=== PATIENT | male | born 1995 | race Caucasian/White ===

== ENCOUNTER 2019-07-06 09:37 | Outpatient (CLI) | payer BC, SELFPAY ==
--- NOTE | ~2019-07-06 | XR_ITS ---
EXAMINATION: XR chest 2V DATE: 07/06/2019 10:32 INDICATION: Midsternal chest pain TECHNIQUE: Frontal and lateral views of the chest are obtained COMPARISON: None available FINDINGS: The lungs are free of acute opacities. There is no pleural effusion or pneumothorax. The ca rdiomediastinal silhouette is normal. The visualized bones and soft tissues are unremarkable. IMPRESSION: 1. No acute cardiopulmonary abnormality. Reviewed, dictated and finalized at location B.
--- NOTE | 2019-07-06 09:42 | EST_ITS ---
Patient Info Name: Med Harrell Age: 23 years : 1995 Gender: Male Ht: 70 in Wt: 205 lbs BSA: 2.17 m2 Exam Date: 07/06/2019 9:56 AM Exam Location: [facility] Stress Patient Status: Outpatient Admit Date: 07/06/2019 Staff Ordering Physician: Victoria Vila NP Attending Provider: Victoria Vila NP Exercise Technologist: Chen Castro RDCS Exercise Physician: Ramses Joe DO Exam Type: CA stress test treadmill Study Info Indications R07.89 - Other chest pain A treadmill exercise stress test was performed. Summary 1. 1. Negative Toro exercise stress test for ischemic ST changes by ECG criteria. 2. 2. Good functional capacity, achieving 14 METs of workload. 3. 3. Baseline hypertension. 4. 4. Appropriate HR response to exercise. 5. 5. Appropriate HR recovery at 1 minute post exercise. 6. 6. No imaging with stress testing. 7. 7. Patient informed of the above results. Protocol: [facility]o Stress ECG Details Stage: REST Duration (min): 0 min : 43 sec Speed (mph): 0.0 Grade (%): 0 HR (bpm): 83 SBP (mmHg): 155 DBP (mmHg): 91 METS: --- Stage: REST Duration (min): 4 min : 53 sec Speed (mph): 0.0 Grade (%): 0 HR (bpm): 74 SBP (mmHg): 155 DBP (mmHg): 91 METS: --- Stage: STAGE 1 Duration (min): 1 min : 0 sec Speed (mph): 1.7 Grade (%): 10 HR (bpm): 91 SBP (mmHg): 155 DBP (mmHg): 91 METS: --- Stage: STAGE 1 Duration (min): 2 min : 0 sec Speed (mph): 1.7 Grade (%): 10 HR (bpm): 94 SBP (mmHg): 155 DBP (mmHg): 91 METS: --- Stage: STAGE 1 Duration (min): 3 min : 0 sec Speed (mph): 1.7 Grade (%): 10 HR (bpm): 93 SBP (mmHg): 175 DBP (mmHg): 75 METS: --- Stage: STAGE 2 Duration (min): 1 min : 0 sec Speed (mph): 2.5 Grade (%): 12 HR (bpm): 107 SBP (mmHg): 175 DBP (mmHg): 75 METS: --- Stage: STAGE 2 Duration (min): 2 min : 0 sec Speed (mph): 2.5 Grade (%): 12 HR (bpm): 106 SBP (mmHg): 188 DBP (mmHg): 75 METS: --- Stage: STAGE 2 Duration (min): 3 min : 0 sec Speed (mph): 2.5 Grade (%): 12 HR (bpm): 107 SBP (mmHg): 188 DBP (mmHg): 75 METS: --- Stage: STAGE 3 Duration (min): 1 min : 0 sec Speed (mph): 3.4 Grade (%): 14 HR (bpm): 118 SBP (mmHg): 170 DBP (mmHg): 72 METS: --- Stage: STAGE 3 Duration (min): 2 min : 0 sec Speed (mph): 3.4 Grade (%): 14 HR (bpm): 124 SBP (mmHg): 170 DBP (mmHg): 72 METS: --- Stage: STAGE 3 Duration (min): 3 min : 0 sec Speed (mph): 3.4 Grade (%): 14 HR (bpm): 126 SBP (mmHg): 176 DBP (mmHg): 76 METS: --- Stage: STAGE 4 Duration (min): 1 min : 0 sec Speed (mph): 4.2 Grade (%): 16 HR (bpm): 150 SBP (mmHg): 176 DBP (mmHg): 76 METS: --- Stage: STAGE 4 Duration (min): 2 min :
== END 2019-07-06 09:38 | disposition home or self-care (01) ==
PROVIDERS: PCP Internal Medicine; Visit Provider Nurse Practitioner
DX: R07.9 Chest pain, unspecified (principal); D75.1 Secondary polycythemia
CPT/HCPCS: 71046; 93017

== ENCOUNTER 2019-10-19 11:01 | Outpatient (CLI) | payer BC, SELFPAY ==
--- NOTE | 2019-10-24 15:38 | WPDHOLTEREM ---
Holter/Event Monitor Holter/Event Monitor Date of procedure: 10/19/19 Procedure Type: 48 hour holter monitor Indications: Palpitations Conclusion: 1. 48 hour holter monitor on 10/19/19. 2. Underlying rhythm is sinus rhythm. HR range 43-171 bpm; average HR 78 bpm. 3. There are 2 premature supraventricular complexes. No supraventricular tachycardia. 4. No premature ventricular complexes. No ventricular tachycardia. 5. No sinoatrial or atrioventricular blocks. No significant pauses greater than 2 seconds. 6. Patient reports symptoms of skipped beats, fluttering, sharp pain which demonstrate Sinus rhythm, HR range 58-138 bpm and a PAC.
== END 2019-10-19 11:02 | disposition home or self-care (01) ==
LOC: ANHCARD 11:03
PROVIDERS: PCP Internal Medicine; Visit Provider Clinical Nurse Specialist
DX: R00.2 Palpitations (principal)
CPT/HCPCS: 93225; 93226

== ENCOUNTER 2023-09-02 17:31 | Emergency (ER) | payer BC, SELFPAY ==
[2023-09-02 17:38] VITALS: BP 149/86; PULSE 66; RESP 18; TEMP 36.4; O2SAT 100
--- NOTE | 2023-09-02 17:38 | ED.SKABFB ---
HPI - Skin/Abscess/Foreign Bdy General Chief complaint: Skin/Abscess/Foreign Body Stated complaint: Wound on Tailbone Time Seen by Provider: 09/02/23 17:39 Source: patient Mode of arrival: ambulatory Limitations: no limitations History of Present Illness HPI narrative: Patient is a 27-year-old male who presents with 3 months of wound on tailbone. States it started after falling while skiing on to having a knot. Patient has seen Dermatology and states it was almost gone. The last 3 days he has noticed it grow in size, tenderness and irritation. Denies any drainage from area. Related Data Allergies Allergy/AdvReac Type Severity Reaction Status Date / Time No Known Allergies Allergy Unverified 08/31/23 07:07 Review of Systems Review of Systems: All systems reviewed & are unremarkable except as noted in HPI and below Constitutional: Constitutional: Denies body ache(s), Denies chills, Denies fatigue, Denies fever(s), Denies headache(s), Denies malaise and Denies weakness Eyes: Eyes: Denies blurry vision, Denies irritation and Denies loss of vision ENT: Denies otalgia, Denies headache(s), Denies nasal discharge, Denies sinus pain and Denies sore throat Cardiovascular: Cardiovascular: Denies chest pain, Denies irregular heart rhythm and Denies dyspnea Respiratory: Respiratory: Denies dyspnea Gastrointestinal: Gastrointestinal: Denies abdominal pain, Denies melena, Denies hematochezia, Denies diarrhea, Denies nausea and Denies vomiting Musculoskeletal: Musculoskeletal: Denies back pain, Denies myalgias and Denies arthralgias Integumentary/Breasts: Skin/Breast: Reports furuncle, Denies pruritus, Reports erythema and Denies rash Neurologic: Denies headache(s), Denies loss of vision and Denies weakness Psychiatric: Psychiatric: Reports no additional psychiatric complaints Endocrine: Endocrine: Denies fatigue PMFSH Past Medical History Medical History BMI 29.0-29.9,adult Encounter for preventive health examination Encounter to establish care Erythrocytosis Hair loss Hyperhidrosis Hypertension On buttermaker continuous churn drug therapy Right leg injury Surgical History Surgical History Hx of tonsillectomy Family History Family History Grandparent Hypertension Social History Social History Smoking status: Never smoker Second hand tobacco smoke exposure: No Alcohol intake: current Alcohol use details: occasionally Lack of Transportation: No Lack of Food: Never True Current Housing: I Have Housing Concerned About Future Housing: No Difficulty Paying Gas/Electric Bills: No Difficulty Paying for Meds: No Currently Unemployed: No Education: Bachelor's Degree Difficulty w/ Childcare or Family Care: No Occupation/Education: occupation Gender identity (if verbalized by the patient): Male Comments At time of signature, agree with nursing past medical, surgical, social and family history. There is no relevant family history pertinent to the presenting complaint. Exam Const: General: cooperative, healthy appearing, comfortable, no acute distress and well nourished Nutritional Appearance: well nourished Orientation/consciousness: patient oriented x3 Limitations: no limitations HENMT: Head: normal to inspection, normocephalic and atraumatic Ears: hearing grossly normal bilaterally and external ears normal Face/Nose/Sinus: Normal external nose present, normal facial exam and face symmetric Face and sinus: normal facial exam and face symmetric Mouth: Yes lip normal Eyes: General: appearance normal, both eyes and all related structures Alignment and Position: alignment normal and position normal Periorbital: periorbital findings normal Eyelids: eyelids normal Pupils: Equal, round and
== END 2023-09-02 18:27 | disposition home or self-care (01) ==
PROVIDERS: Emergency Provider Nurse Practitioner Family; PCP Internal Medicine
DX: L72.9 Follicular cyst of the skin and subcutaneous tissue, unspecified (principal); I10 Essential (primary) hypertension
CPT/HCPCS: 10140; 99213; G0463

== ENCOUNTER 2023-11-24 00:53 | Emergency (ER) | payer BC, SELFPAY ==
--- NOTE | ~2023-11-24 | CT_ITS ---
EXAMINATION: CT brain wo con DATE: 11/24/2023 02:13 INDICATION: Headache. TECHNIQUE: Computed tomography (CT) of the head was performed without intravenous contrast. The mA wa s adjusted according to patient size. Iterative reconstruction technique was employed. The dose-lengt h product was 605.33 mGy-cm. COMPARISON: None FINDINGS: There is no intracranial hemorrhage, acute infarction, or abnormal intracranial mass lesion . The ventricles are normal in size. There is mild mucosal thickening in the paranasal sinuses. The o rbits are normal. The mastoid air cells are normal. IMPRESSION: 1. Normal brain. Reviewed, dictated and finalized at location A. IMPRESSION: 1. Normal brain.
[2023-11-24 00:57] VITALS: BP 168/117; PULSE 64; RESP 14; TEMP 36.1; O2SAT 100
--- NOTE | 2023-11-24 01:44 | ED.HA ---
HPI - Headache General Chief Complaint: Recheck/Abnormal Lab/Rx Stated Complaint: HTN Time Seen by Provider: 11/24/23 01:34 History of Present Illness HPI Narrative: This is a 28-year-old male with a past medical history significant for hypertension who presents to the ED for sudden onset headache that woke him up from sleep. Patient has never had a headache like this in the past describes as a deep sensation in his call and somewhat radiating behind his left eye. He states he went to bed in his normal state of health and woke up about 1-1/2 hours ago with the sudden-onset headache sensation. He had some associated neuropathy in his fingertips at the moment which slowly subside over the next 45 minutes with a headache subsided. He did not take any medications to abort the headache. Patient took his blood pressure at home and noted that was at 180 systolic which is very high for him. He normally has a history of high blood pressure within the 150 range with a history of taking losartan which she is presently not taking. Presently he states his headache is mostly subsided as well as his neuropathy symptoms. Denies any chest pain shortness a breath, nausea, vomiting, vision changes, abdominal pain, back pain, fever, chills, neck pain. He is able ambulate unassisted and has no neuro deficits. Denies any trauma. No history of aneurysms, no history of sudden or aneurysms in the family. Denies any drugs such as alcohol or cocaine. Related Data Allergies Allergy/AdvReac Type Severity Reaction Status Date / Time No Known Allergies Allergy Unverified 08/31/23 07:07 Review of Systems Review of Systems: As reviewed [facility] Past Medical History Medical History BMI 29.0-29.9,adult Encounter for preventive health examination Encounter to establish care Erythrocytosis Hair loss Hyperhidrosis Hypertension On intermodal dispatcher drug therapy Right leg injury Surgical History Surgical History Hx of tonsillectomy Family History Family History Grandparent Hypertension Social History Social History Smoking status: Never smoker Second hand tobacco smoke exposure: No Alcohol intake: current Alcohol use details: occasionally Lack of Transportation: No Lack of Food: Never True Current Housing: I Have Housing Concerned About Future Housing: No Difficulty Paying Gas/Electric Bills: No Difficulty Paying for Meds: No Currently Unemployed: No Education: Bachelor's Degree Difficulty w/ Childcare or Family Care: No Occupation/Education: occupation Gender identity (if verbalized by the patient): Male Exam Narrative: GENERAL: [Well-appearing, well-nourished, and in no acute distress.] HEAD: [Normocephalic, atraumatic.] EYES: [PERRLA and EOMI.] ENT: Nares clear, no rhinorrhea or epistaxis. Mucous membranes moist. NECK: Supple. CHEST: [Clear to auscultation. No respiratory distress.] HEART: [Regular rate and rhythm]. No murmur heard. [Normal peripheral pulses.] ABDOMEN: [Soft, nondistended], [nontender], [No rigidity or guarding] EXTREMITIES: Normal range of motion. [No edema.] SKIN: Warm, dry, no rash. NEURO: [No focal deficits]. Alert and oriented [x3.] No ataxia in the arms or legs. Full strength and sensation bilateral upper extremities. Extraocular movements are full. Pupils are equal and reactive to light. PSYCH: [Normal mood and affect.] Course Vital Signs Vital signs: Vital Signs Temperature 36.1 C L 11/24/23 00:57 Pulse Rate 64 11/24/23 00:57 Respiratory Rate 14 11/24/23 00:57 Blood Pressure 168/117 H 11/24/23 00:57 Pulse Oximetry 100 11/24/23 00:57 Oxygen Delivery Room Air 11/24/23 00:57 Temperature 36.
[2023-11-24 01:59] VITALS: O2SAT 99
[2023-11-24 02:00] LABS: Basophils Percent Auto 0.4 % (0.2-1.2); Eosinophils Absolute Auto 0.2 K/mm3 (0-0.3); Hematocrit 47.8 % (42.0-52.0); Hemoglobin 16.2 g/dL (14.0-18.0); Immature Granulocyte Absolute 0.02 K/mm3 (0.00-0.031); Immature Granulocyte Percent A 0.2 % (0-0.5); Lymphocytes Absolute Auto 3.02 K/mm3 (0.9-3.2); Lymphocytes Percent Auto 37.1 % (18.3-44.2); Mean Corpuscular HGB Conc 33.9 g/dl (32-36); Mean Corpuscular Volume 94.5 fl (80-100); Monocytes Absolute Auto 0.5 K/mm3 (0.1-0.6); Monocytes Percent Auto 5.9 % (2.6-8.5); Neutrophils Absolute Auto 4.4 K/mm3 (1.3-6.7); Neutrophils Percent Auto 54.4 % (45.5-73.1); Platelet Count Result 203 k/mm3 (150-375); Red Blood Count 5.06 M/mm3 (4.6-6.20); White Blood Count 8.1 K/mm3 (4.5-10.0)
[2023-11-24] MEDS: SODIUM CHLORIDE 0.9% IV 1,000 ML 999 ML IV CONT (02:00)
[2023-11-24] MEDS: MAGNESIUM SULF 2 GM/WATER 50ML 2 GM/50 ML BAG IVPB (02:01)
[2023-11-24] MEDS: diphenhydrAMINE HCl INJ 50 MG/ML VIAL 25 MG IV PUSH (02:01)
[2023-11-24] MEDS: PROCHLORPERAZINE EDISYLATE 10 MG/2 ML VIAL IV PUSH (02:01)
[2023-11-24 02:13] LABS: Anion Gap 7 mmol/L (4-12); Blood Urea Nitrogen 17 mg/dL (9-20); Calcium 9.9 mg/dL (8.4-10.2); Carbon Dioxide 31 mmol/L (22-30); Chloride 99 mmol/L (98-107); Estimated CRCL calculation 86 ml/min; Estimated Glomerular Filt Rate > 60; Glucose 104 mg/dL (65-110); Potassium 4.5 mmol/L (3.4-5.0); Sodium 137 mmol/L (137-145)
[2023-11-24 02:32] VITALS: BP 163/100; PULSE 67; RESP 16; O2SAT 99
[2023-11-24 03:56] VITALS: BP 168/99; PULSE 70; RESP 17; TEMP 36.6; O2SAT 99
== END 2023-11-24 03:59 | disposition home or self-care (01) ==
PROVIDERS: Emergency Provider Student in an Organized Health Care Education/Training Program; PCP Internal Medicine
DX: R51.9 Headache, unspecified (principal); I10 Essential (primary) hypertension
CPT/HCPCS: 36415; 70450; 80048; 85025; 96361; 96365; 96366; 96375; 99284; J0780; J1200; J3475; J7030

== ENCOUNTER 2023-12-06 15:28 | Outpatient (CLI) | payer BC, SELFPAY ==
--- NOTE | ~2023-12-06 | MR_ITS ---
EXAMINATION: MR brain/brain stem wo/w con DATE: 12/06/2023 16:04 INDICATION: Headache, unspecified. TECHNIQUE: Magnetic resonance imaging (MRI) of the brain and brainstem was performed without and with 19 mL MultiHance intravenous contrast. COMPARISON: Head CT 11/24/2023 FINDINGS: There is no intracranial hemorrhage, acute infarction, or abnormal intracranial mass lesion . The ventricles are normal in size. There is mild mucosal thickening in the paranasal sinuses. The o rbits are normal. The mastoid air cells are normal. IMPRESSION: 1. Normal brain. Reviewed, dictated and finalized at location A. IMPRESSION: 1. Normal brain.
== END 2023-12-06 15:29 ==
LOC: MICIMG 15:29
PROVIDERS: PCP Internal Medicine; Visit Provider Internal Medicine
DX: R51.9 Headache, unspecified (principal)
CPT/HCPCS: 70553; A9577